=== PATIENT | male | born 1995 | race Caucasian/White ===

== ENCOUNTER 2017-01-09 21:25 | Emergency (ER) | payer BC ==
[~2017-01-09] VITALS: Ht 172.7 cm; Wt 83.5 kg
[2017-01-09 21:35] VITALS: Ht 172.7 cm; Wt 83.5 kg
[2017-01-09 22:20] LABS: BASO % 0.2 %; BASO ABS # 0.02 K/uL (0-0.2); COMPLETE YES; EOS % 0.1 %; IG% 0.1 %; LYMPH % 13.9 %; LYMPH ABS # 1.12 K/uL (1.2-3.4); MEAN CELL VOLUME 84.3 fL (80-100); MEAN CORPUSCULAR HEMOGLOBIN 29.6 pg (25-34); MEAN CORPUSCULAR HGB CONC 35.1 g/dl (32-36); MEAN PLATELET VOLUME 9.7 fL (7.4-10.4); MONO % 14.1 %; NEUT % 71.6 %; PLATELET COUNT 205 K/uL (130-400); WHITE BLOOD COUNT 8.08 K/uL (4.8-10.8)
[2017-01-09 22:28] LABS: BUN/CREATININE RATIO 6.8 (10-20); CALCIUM 8.6 mg/dl (8.5-10.1); CREATININE 1.2 mg/dl (0.60-1.40); POTASSIUM 3.7 mmol/L (3.5-5.1)
[2017-01-09 22:29] VITALS: O2SAT 96
[2017-01-09] MEDS ORDERED: ACETAMINOPHEN 500 MG TAB PO STA (22:29)
[2017-01-09] MEDS ORDERED: KETOROLAC TROMETHAMINE 30 MG/ML VIAL IV STA (22:29)
[2017-01-09] MEDS ORDERED: ONDANSETRON INJ 2 MG/ML 2 ML VIAL IV STA (22:29)
[2017-01-09] MEDS ORDERED: SODIUM CHLORIDE 0.9% 1000ML 2,000 ML IV STA (22:29)
[2017-01-09 22:30] LABS: ALB/GLOB RATIO 0.9 (0.9-2)
--- NOTE | 2017-01-09 22:58 | DIAGNOSTIC IMAGING REPORT ---
CHEST ONE VIEW PORTABLE CLINICAL HISTORY: cough and fever dyspnea COMPARISON STUDY: None FINDINGS: Slight peribronchial prominence in the perihilar and upper lobe regions. Minimal accentuation of lower lobe regions. IMPRESSION: Mild bronchitis Electronically signed by: Fer Nixon M.D. 01/09/2017 10:57 PM Dictated Date/Time: 01/09/2017 10:56 PM
--- NOTE | 2017-01-09 23:53 | EMERGENCY ROOM VISIT NOTE ---
ED Visit Note First contact with patient: 22:18 CHIEF COMPLAINT: Fever, congestion, cough, nausea and vomiting 3-4 days HISTORY OF PRESENT ILLNESS: Patient is a 21-year-old white male who presents to the emergency department for evaluation of flulike symptoms. His symptoms started about 4 days ago. He states that he developed fever, sinus and nasal congestion and a dry, nonproductive cough. He reports body and muscle aches, lack of energy and appetite and nausea as well. He states that his nose is so stuffy that he cannot breathe, but he is not to blow out any mucus. He notes a dry, nonproductive cough that keeps him from sleeping. He states he coughs so hard he occasionally vomits. He tried taking DayQuil and Motrin for his symptoms. He does report a few episodes of diarrhea. He denies any chest pain or abdominal pain. He did not receive an influenza vaccine this season. He is a college student. He is not aware of any sick contacts. He denies any skin rashes, no posterior neck pain or stiffness. REVIEW OF SYSTEMS: Review of systems as per HPI. All other systems reviewed were negative. 10 systems reviewed. PMH: Electronic medical records are reviewed and summarized as above/below. See Problem List. SOCIAL HISTORY: Patient lives at home. Nonsmoker. PHYSICAL EXAM: Vital Signs: Reviewed Nurse's notes. Temperature 39.5C orally. Heart rate 117 and regular. Oxygen saturation 96% on room air. MENTAL STATUS: Alert and cooperative. Nontoxic appearing. HEAD: Atraumatic, without temporal or scalp tenderness. EYES: PERRL, EOMI, no discharge or injection. EARS: Tympanic membranes intact, not inflamed, have normal contour. External canals clear. NOSE: Nares patent, turbinates edematous and boggy with clear rhinorrhea. MOUTH: Mucous membranes moist, no lesions, tongue and gums appear normal. THROAT: No pharyngeal injection, exudates, or tonsillar hypertrophy. Airway is patent. NECK: Supple, nontender, no lymphadenopathy. HEART: Tachycardic rate and rhythm without murmurs, ectopy, gallops, or rubs. LUNGS: Clear to auscultation and breath sounds equal, no wheezes, rales, or rhonchi. SKIN: Normal. NEUROLOGICAL: Sensory and motor functions grossly intact. Normal gait. EMERGENCY DEPARTMENT COURSE: CBC with differential, CMP and influenza swab were ordered by the nurse per critical pathways. He received a 2 L bolus of normal saline solution. He was medicated with Tylenol 1 g orally, Zofran 4 mg IV and Toradol 30 mg IV. Portable chest x-ray was interpreted as mild bronchitis-like changes. Electrolytes are without gross abnormality. Renal function is normal. Liver functions are not elevated. Influenza swab is negative. Laboratory studies revealed a normal white count. The patient was reassessed. Fever had improved and was 37.0C orally. He was less tachycardic. He felt better. All laboratory diagnostic imaging studies were reviewed with him. Despite the negative influenza swab, his illness does appear influenza-like. He is out of the window for which Tamiflu is effective. He was given an albuterol inhaler for cough and findings noted on chest x- ray. He was given Hycodan for symptom management. Continued conservative care measures were discussed. He will manage his fever with acetaminophen and ibuprofen. Use [id number] medications for symptomatic relief. His physical exam is not indicative of meningitis or encephalitis. Differential diagnoses entertained included URI, pharyngitis, pneumonia, bronchitis, influenza, among others. CHEST ONE VIEW PORTABLE CLINICAL HISTORY: cough and fever dyspnea COMPARISON STUDY: None FINDINGS: Slight peribronchial prominence in the perihilar and upper lobe regions. Minimal accentuation of lower lobe regions. IMPRESSION: Mild bronchitis Current/Historical Medications No Active Prescriptions or Reported Meds Allergies Coded Allergies: No Known Allergies (Unverified , 01/09/17) Vital Signs Date Time Temp Pulse Resp B/P Pulse Ox O2 Delivery O2 Flow Rate FiO2 01/10/17 00:29 90 20 119/67 97 01/09/17 23:57 37.0 92 20 121/57 97 Room Air 01/09/17 23:35 97 20 131/77 96 Room Air 01/09/17 22:29 96 Room Air 01/09/17 21:43 114 01/09/17 21:35 39.5 117 20 132/61 96 Room Air Laboratory Results 01/09/17 21:44 Red Blood Count 5.10, Mean Corpuscular Volume 84.3, Mean Corpuscular Hemoglobin 29.6, Mean Corpuscular Hemoglobin Concent 35.1, Mean Platelet Volume 9.7, Neutrophils (%) (Auto) 71.6, Lymphocytes (%) (Auto) 13.9, Monocytes (%) (Auto) 14.1, Eosinophils (%) (Auto) 0.1, Basophils (%) (Auto) 0.2, Neutrophils # (Auto ) 5.78, Lymphocytes # (Auto) 1.12, Monocytes # (Auto) 1.14, Eosinophils # (Auto ) 0.01, Basophils # (Auto) 0.02 01/09/17 21:44 Test 01/09/17 21:44 White Blood Count 8.08 K/uL (4.8-10.8) Red Blood Count 5.10 M/uL (4.7-6.1) Hemoglobin 15.1 g/dL (14.0-18.0) Hematocrit 43.0 % (42-52) Mean Corpuscular Volume 84.3 fL (80-100) Mean Corpuscular Hemoglobin 29.6 pg (25-34) Mean Corpuscular Hemoglobin Concent 35.1 g/dl (32-36) Platelet Count 205 K/uL (130-400) Mean Platelet Volume 9.7 fL (7.4-10.4) Neutrophils (%) (Auto) 71.6 % Lymphocytes (%) (Auto) 13.9 % Monocytes (%) (Auto) 14.1 % Eosinophils (%) (Auto) 0.1 % Basophils (%) (Auto) 0.2 % Neutrophils # (Auto) 5.78 K/uL (1.4-6.5) Lymphocytes # (Auto) 1.12 K/uL (1.2-3.4) Monocytes # (Auto) 1.14 K/uL (0.11-0.59) Eosinophils # (Auto) 0.01 K/uL (0-0.5) Basophils # (Auto) 0.02 K/uL (0-0.2) RDW Standard Deviation 41.8 fL (36.4-46.3) RDW Coefficient of Variation 13.5 % (11.5-14.5) Immature Granulocyte % (Auto) 0.1 % Immature Granulocyte # (Auto) 0.01 K/uL (0.00-0.02) Anion Gap 10.0 mmol/L (3-11) Est Creatinine Clear Calc Drug Dose 102.5 ml/min Estimated GFR () 99.6 Estimated GFR (Non- 85.9 BUN/Creatinine Ratio 6.8 (10-20) Calcium Level 8.6 mg/dl (8.5-10.1) Total Bilirubin 0.5 mg/dl (0.2-1) Aspartate Amino Transf (AST/SGOT) 14 U/L (15-37) Alanine Aminotransferase (ALT/SGPT) 13 U/L (12-78) Alkaline Phosphatase 72 U/L (45-117) Total Protein 7.8 gm/dl (6.4-8.2) Albumin 3.6 gm/dl (3.4-5.0) Globulin 4.2 gm/dl (2.5-4.0) Albumin/Globulin Ratio 0.9 (0.9-2) Influenza Type A Antigen Neg for Influ A (NEG) Influenza Type B Antigen Neg for Influ B (NEG) Medications Administered Medications (Trade) Dose Ordered Sig/Dheeraj Route Start Time Stop Time Status Last Admin Dose Admin Ketorolac Tromethamine (Toradol Inj) 30 mg NOW STAT IV 01/09/17 22:29 01/09/17 22:30 DC 01/09/17 22:50 30 MG Acetaminophen (Tylenol Tab) 1,000 mg NOW STAT PO 01/09/17 22:29 01/09/17 22:30 DC 01/09/17 22:50 1,000 MG Ondansetron HCl 4 mg 4 mg NOW STAT IV 01/09/17 22:29 01/09/17 22:30 DC 01/09/17 22:50 4 MG Sodium Chloride (Nss 1000ml) 2,000 ml @ 999 mls/hr Q2H1M STAT IV 01/09/17 22:29 01/10/17 00:29 DC 01/09/17 22:43 999 MLS/HR Albuterol (Ventolin Hfa Inhaler) 2 puffs NOW ONCE INH 01/10/17 00:15 01/10/17 00:16 DC 01/10/17 00:25 2 PUFFS Hydrocodone Bit/ Homatropine Methylb (Hycodan Elix Homepack 5/1.5MG/ 5ML) 1 homepack UD ONCE PO 01/10/17 00:15 01/10/17 00:16 DC 01/10/17 00:24 1 HOMEPACK Departure Information Impression Primary Impression: Influenza-like illness Prescriptions No Active Prescriptions or Reported Meds Referrals No Doctor, Assigned (PCP) Patient Instructions [facility] Additional Instructions Acetaminophen(Tylenol) may be used for fever or pain. Use 1000mg every six hours as needed. Avoid using more than 3000mg in a 24 hour period. (AND/OR) Ibuprofen(Motrin, Advil) may be used for fever or pain. Use 600mg every six hours as needed. Take with food. Avoid using more than 2400mg in a 24 hour period. Do not use 2400mg per day for more than three consecutive days without physician direction. Prolonged inappropriate use can lead to stomach upset or ulcers. Afrin nasal spray: 2-3 sprays to each nostril twice daily as needed for congestion. Do not use for more than 3-4 days because it can lead to worsening rebound congestion. Pseudoephedrine(Sudaphed): 30-60mg every 6 hours as needed for nasal congestion. Do not take this with other stimulant products or supplements. Guaifenesin (Mucinex) : Take 1200 mg every 12 hours as needed for nasal/chest congestion, to help thin secretions. Albuterol Inhaler: Take 2 puffs four times daily for seven days, then as needed. Hycodan cough syrup: use 5-10 mL every six hours only as needed for severe cough. It is best for use at night since it will cause sedation. This is a narcotic medication. Avoid alcohol, operating machinery or dangerous equipment , working on ladders or roofs, DRIVING, or situations where being under the influence may be dangerous. It is recommended to use an [id number] stool softener such as Colace, 100mg twice daily while taking this medication to avoid constipation. Rest and drink plenty of fluids. Controlling your fever with Tylenol and Ibuprofen as above will make you feel better. Wash your hands after nose blowing, sneezing, or coughing. Most germs are spread through contact, therefore improper hygiene may result in your close contacts and loved ones becoming ill just like you. Continue current medications. Return to the ER for severe headache, neck stiffness, chest pain, difficulty breathing, fevers, vomiting, worsening of your condition, or as needed. Follow up with your primary physician this week for a recheck of your current condition.
[2017-01-09 23:57] VITALS: TEMP 37
[2017-01-10] MEDS ORDERED: ALBUTEROL HFA 8 GM INHALER INH ONE (00:15)
[2017-01-10] MEDS ORDERED: HYCODAN 60ML BOTTLE HOMEPACK PO ONE (00:15)
[2017-01-10 00:29] VITALS: BP 119/67; PULSE 90; O2SAT 97
== END 2017-01-10 00:31 | disposition home or self-care (01) ==
LOC: C.EDB 21:26 → C.EDC 01-10 00:31
DX: J11.1 Influenza due to unidentified influenza virus with other respiratory manifestations (principal)